=== PATIENT | male | born 1955 | race Caucasian/White ===

== ENCOUNTER 2021-09-13 02:03 | Inpatient (IN) | payer OTHER ==
[2021-09-13 03:42] LABS: BASO % 0.7 % (0-2.0); EOS % 2.5 % (0-4.5); HEMATOCRIT 33.3 % (35.4-49); HEMOGLOBIN 11.6 GM/dL (11.7-16.9); LYMPH % 19.5 % (8-40); MCHC 34.9 g/dl (32.0-35.9); MEAN CELL VOLUME 88.8 fl (80-96); MEAN PLT VOLUME 6.6 fl (7.5-11.1); MONO % 9.1 % (3.8-10.2); NEUT % 68.2 % (42.8-82.8); PLATELET COUNT 117 10^3/uL (134-434); RBC 3.75 M/mm3 (4.00-5.60); RDW 14.3 % (11.9-15.9); WHITE BLOOD COUNT 7.6 K/mm3 (4.0-10.0)
[2021-09-13 03:48] LABS: INR 1.03 (0.83-1.09); PROTHROMBIN TIME (PATIENT) 11.9 SEC (9.7-13.0)
[2021-09-13 03:50] LABS: ACTIVATED PTT 33.4 SECONDS (25.2-36.5)
[2021-09-13 04:01] LABS: CALCIUM 8.7 mg/dL (8.5-10.1)
[2021-09-13 04:02] LABS: ALBUMIN 3.6 g/dl (3.4-5.0); BLOOD UREA NITROGEN 29.9 mg/dL (7-18)
[2021-09-13 04:05] LABS: CREATININE 1.8 mg/dL (0.55-1.3)
[2021-09-13 04:06] LABS: BILIRUBIN,TOTAL 0.5 mg/dL (0.2-1)
[2021-09-13] MEDS ORDERED: DIPHTH,PERTUSS(ACELL),TET 0.5 ML DISP.SYRIN IM ONE ×3 (06:03→06:39)
[2021-09-13] MEDS ORDERED: BACITRACIN 0.9 GM PACKET ONE (06:04)
[2021-09-13] MEDS ORDERED: SODIUM CHLORIDE 0.9% 500 ML INFUS.BAG IV ONE (06:08)
[2021-09-13] MEDS ORDERED: LACTATED RINGERS SOLUTION 1000 ML INFUS.BAG IV ONE (08:58)
[2021-09-13] MEDS ORDERED: DIVALPROEX NA *ER* EXTEND REL 500 MG TABLET.SA (FP) PO SCH (10:00)
[2021-09-13] MEDS ORDERED: TAMSULOSIN HCL 0.4 MG CAP ONE (10:41)
[2021-09-13] MEDS ORDERED: ACETAMINOPHEN 325 MG TABLET (FP) ONE (10:41)
[2021-09-13] MEDS: SODIUM CHLORIDE 1,000 ML IV SCH (10:54)
[2021-09-13] MEDS: TAMSULOSIN HCL 0.4 MG CAP PO SCH (10:54)
[2021-09-13] MEDS: INSULIN (NOVOLOG) ASPART 100 UNITS/ML 10ML VIAL SQ SCH ×2 (10:54→17:07)
[2021-09-13] MEDS ORDERED: DIVALPROEX NA *ER* EXTEND REL 250 MG TABLET.SA PO SCH (10:55)
[2021-09-13] MEDS: ACETAMINOPHEN 325 MG TABLET (FP) PO PRN ×2 (11:00→20:17)
[2021-09-13 15:58] VITALS: BMI 23.6
[2021-09-13] MEDS: ATORVASTATIN CA 80 MG TABLET (FP) PO SCH (22:20)
[2021-09-14] MEDS: SODIUM CHLORIDE 1,000 ML IV SCH ×2 (03:53→17:32)
[2021-09-14] MEDS: ACETAMINOPHEN 325 MG TABLET (FP) PO PRN ×2 (05:08→21:33)
[2021-09-14] MEDS: INSULIN (NOVOLOG) ASPART 100 UNITS/ML 10ML VIAL SQ SCH ×3 (06:35→17:32)
[2021-09-14] MEDS: TAMSULOSIN HCL 0.4 MG CAP PO SCH (08:39)
[2021-09-14 10:49] LABS: CALCIUM 8.7 mg/dL (8.5-10.1)
[2021-09-14 10:50] LABS: BLOOD UREA NITROGEN 15.2 mg/dL (7-18)
[2021-09-14 10:53] LABS: CREATININE 1.1 mg/dL (0.55-1.3)
[2021-09-14] MEDS: PARoxetine HCL 10 MG TABLET PO SCH (18:33)
[2021-09-14] MEDS: amLODIPine BESYLATE 10 MG TABLET (FP) PO SCH (18:33)
[2021-09-14] MEDS: BUDESONIDE/FORMETEROL FUMARATE 80/4.5 mcg INHALER IH SCH (21:34)
[2021-09-14] MEDS: ATORVASTATIN CA 80 MG TABLET (FP) PO SCH (21:34)
[2021-09-14] MEDS: METOPROLOL TARTRATE 50 MG TABLET (FP) PO SCH (21:34)
[2021-09-14] MEDS: risperiDONE 0.5 MG TABLET PO SCH (21:34)
[2021-09-14] MEDS: clonazePAM 2 MG TABLET PO SCH (21:34)
[2021-09-15] MEDS: ACETAMINOPHEN 325 MG TABLET (FP) PO PRN (02:56)
[2021-09-15] MEDS: LEVOTHYROXINE NA 125 MCG TABLET (FP) PO SCH (06:21)
[2021-09-15] MEDS: INSULIN (NOVOLOG) ASPART 100 UNITS/ML 10ML VIAL SQ SCH ×3 (06:22→18:07)
[2021-09-15] MEDS: TAMSULOSIN HCL 0.4 MG CAP PO SCH (08:15)
[2021-09-15 09:07] LABS: BASO % 0.4 % (0-2.0); EOS % 2.5 % (0-4.5); HEMOGLOBIN 12.6 GM/dL (11.7-16.9); LYMPH % 21.8 % (8-40); MEAN CELL VOLUME 88.7 fl (80-96); MEAN PLT VOLUME 6.8 fl (7.5-11.1); MONO % 10.1 % (3.8-10.2); NEUT % 65.2 % (42.8-82.8); PLATELET COUNT 122 10^3/uL (134-434); RBC 4.06 M/mm3 (4.00-5.60); RDW 14.6 % (11.9-15.9); WHITE BLOOD COUNT 4.7 K/mm3 (4.0-10.0)
[2021-09-15 09:28] LABS: CALCIUM 8.9 mg/dL (8.5-10.1); MAGNESIUM 2.1 mg/dL (1.8-2.4)
[2021-09-15] MEDS: clonazePAM 2 MG TABLET PO SCH ×2 (09:30→22:20)
[2021-09-15] MEDS: METOPROLOL TARTRATE 50 MG TABLET (FP) PO SCH ×2 (09:30→22:20)
[2021-09-15 09:31] LABS: PHOSPHOROUS 2.8 mg/dL (2.5-4.9)
[2021-09-15] MEDS: SODIUM CHLORIDE 1,000 ML IV SCH ×2 (09:31→20:09)
[2021-09-15] MEDS: BUDESONIDE/FORMETEROL FUMARATE 80/4.5 mcg INHALER IH SCH ×2 (09:31→22:21)
[2021-09-15] MEDS: amLODIPine BESYLATE 10 MG TABLET (FP) PO SCH (09:31)
[2021-09-15] MEDS: PARoxetine HCL 10 MG TABLET PO SCH (09:31)
[2021-09-15] MEDS: oxyCODONE HCL 5 MG TABLET PO PRN (18:12)
[2021-09-15] MEDS: HEPARIN NA (PORCINE) 5,000 UNITS/ML 1ML VIAL SQ SCH (22:18)
[2021-09-15] MEDS: ATORVASTATIN CA 80 MG TABLET (FP) PO SCH (22:20)
[2021-09-15] MEDS: risperiDONE 0.5 MG TABLET PO SCH (22:20)
[2021-09-16] MEDS: HEPARIN NA (PORCINE) 5,000 UNITS/ML 1ML VIAL SQ SCH ×3 (06:21→21:51)
[2021-09-16] MEDS: INSULIN (NOVOLOG) ASPART 100 UNITS/ML 10ML VIAL SQ SCH ×3 (06:21→17:01)
[2021-09-16] MEDS: LEVOTHYROXINE NA 125 MCG TABLET (FP) PO SCH (06:22)
[2021-09-16] MEDS: TAMSULOSIN HCL 0.4 MG CAP PO SCH (08:27)
[2021-09-16] MEDS: SODIUM CHLORIDE 1,000 ML IV SCH (08:28)
[2021-09-16 09:15] LABS: BASO % 0.5 % (0-2.0); EOS % 2.8 % (0-4.5); HEMATOCRIT 33.9 % (35.4-49); HEMOGLOBIN 11.9 GM/dL (11.7-16.9); LYMPH % 21.6 % (8-40); MCH 30.9 pg (25.7-33.7); MCHC 35.1 g/dl (32.0-35.9); MEAN CELL VOLUME 88.2 fl (80-96); MEAN PLT VOLUME 6.7 fl (7.5-11.1); NEUT % 64.1 % (42.8-82.8); PLATELET COUNT 117 10^3/uL (134-434); RBC 3.85 M/mm3 (4.00-5.60); RDW 14.7 % (11.9-15.9); WHITE BLOOD COUNT 5.1 K/mm3 (4.0-10.0)
[2021-09-16 09:45] LABS: CALCIUM 8.8 mg/dL (8.5-10.1)
[2021-09-16 09:46] LABS: BLOOD UREA NITROGEN 8.5 mg/dL (7-18); MAGNESIUM 1.9 mg/dL (1.8-2.4)
[2021-09-16 09:49] LABS: CREATININE 1.1 mg/dL (0.55-1.3); PHOSPHOROUS 2.5 mg/dL (2.5-4.9)
[2021-09-16] MEDS: BUDESONIDE/FORMETEROL FUMARATE 80/4.5 mcg INHALER IH SCH ×2 (10:47→21:52)
[2021-09-16] MEDS: METOPROLOL TARTRATE 50 MG TABLET (FP) PO SCH ×2 (10:47→21:51)
[2021-09-16] MEDS: amLODIPine BESYLATE 10 MG TABLET (FP) PO SCH (10:47)
[2021-09-16] MEDS: PARoxetine HCL 10 MG TABLET PO SCH (10:47)
[2021-09-16] MEDS: clonazePAM 2 MG TABLET PO SCH ×2 (10:47→21:51)
[2021-09-16] MEDS: PATIENT'S OWN MEDICATION (NON-FORMULARY) (Cyclosporine [Restasis] 1 EACH Droperette) OU SCH ×2 (15:38→15:39)
[2021-09-16] MEDS: ATORVASTATIN CA 80 MG TABLET (FP) PO SCH (21:52)
[2021-09-16] MEDS: risperiDONE 0.5 MG TABLET PO SCH (21:52)
[2021-09-17] MEDS: SODIUM CHLORIDE 1,000 ML IV SCH ×2 (01:10→10:24)
[2021-09-17] MEDS: oxyCODONE HCL 5 MG TABLET PO PRN ×2 (01:39→20:44)
[2021-09-17] MEDS: ACETAMINOPHEN 325 MG TABLET (FP) PO PRN ×2 (04:13→20:45)
[2021-09-17] MEDS: INSULIN (NOVOLOG) ASPART 100 UNITS/ML 10ML VIAL SQ SCH ×3 (06:36→17:20)
[2021-09-17] MEDS: HEPARIN NA (PORCINE) 5,000 UNITS/ML 1ML VIAL SQ SCH ×2 (06:36→15:02)
[2021-09-17] MEDS: LEVOTHYROXINE NA 125 MCG TABLET (FP) PO SCH (06:36)
[2021-09-17 09:06] LABS: BASO % 0.6 % (0-2.0); HEMATOCRIT 32.1 % (35.4-49); HEMOGLOBIN 11.3 GM/dL (11.7-16.9); LYMPH % 24.2 % (8-40); MCHC 35.3 g/dl (32.0-35.9); MEAN CELL VOLUME 87.8 fl (80-96); MEAN PLT VOLUME 6.5 fl (7.5-11.1); MONO % 12.4 % (3.8-10.2); NEUT % 59.8 % (42.8-82.8); PLATELET COUNT 126 10^3/uL (134-434); RBC 3.65 M/mm3 (4.00-5.60); RDW 14.6 % (11.9-15.9); WHITE BLOOD COUNT 5.5 K/mm3 (4.0-10.0)
[2021-09-17 09:15] LABS: CALCIUM 8.2 mg/dL (8.5-10.1)
[2021-09-17 09:16] LABS: BLOOD UREA NITROGEN 8.3 mg/dL (7-18)
[2021-09-17 09:17] LABS: MAGNESIUM 1.8 mg/dL (1.8-2.4)
[2021-09-17 09:19] LABS: CREATININE 1.1 mg/dL (0.55-1.3); PHOSPHOROUS 2.4 mg/dL (2.5-4.9)
[2021-09-17] MEDS: clonazePAM 2 MG TABLET PO SCH ×2 (10:23→21:38)
[2021-09-17] MEDS: TAMSULOSIN HCL 0.4 MG CAP PO SCH (10:23)
[2021-09-17] MEDS: PARoxetine HCL 10 MG TABLET PO SCH (10:23)
[2021-09-17] MEDS: amLODIPine BESYLATE 10 MG TABLET (FP) PO SCH (10:23)
[2021-09-17] MEDS: METOPROLOL TARTRATE 50 MG TABLET (FP) PO SCH ×2 (10:23→21:42)
[2021-09-17] MEDS: BUDESONIDE/FORMETEROL FUMARATE 80/4.5 mcg INHALER IH SCH ×2 (10:26→21:43)
[2021-09-17] MEDS ORDERED: SODIUM CHLORIDE 0.9% 500 ML INFUS.BAG IV ONE (11:12)
[2021-09-17] MEDS ORDERED: POTASSIUM CHLORIDE TABS 20 MEQ TABLET.ER (FP) PO ONE (11:30)
[2021-09-17] MEDS ORDERED: POTASSIUM CHLORIDE ORAL LIQUID 20 MEQ/15 ML PO ONE (14:00)
[2021-09-17] MEDS ORDERED: FAMOTIDINE 20 MG TABLET PO ONE (21:00)
[2021-09-17] MEDS ORDERED: FAMOTIDINE 10 MG TABLET PO ONE (21:00)
[2021-09-17] MEDS: ATORVASTATIN CA 80 MG TABLET (FP) PO SCH (21:38)
[2021-09-17] MEDS: risperiDONE 0.5 MG TABLET PO SCH (21:38)
[2021-09-18] MEDS: LEVOTHYROXINE NA 125 MCG TABLET (FP) PO SCH (06:07)
[2021-09-18] MEDS: INSULIN (NOVOLOG) ASPART 100 UNITS/ML 10ML VIAL SQ SCH ×3 (06:08→17:26)
[2021-09-18] MEDS: clonazePAM 2 MG TABLET PO SCH ×2 (10:25→21:16)
[2021-09-18] MEDS: METOPROLOL TARTRATE 50 MG TABLET (FP) PO SCH ×2 (10:25→21:16)
[2021-09-18] MEDS: BUDESONIDE/FORMETEROL FUMARATE 80/4.5 mcg INHALER IH SCH ×2 (10:25→21:17)
[2021-09-18] MEDS: SODIUM CHLORIDE 1,000 ML IV SCH ×2 (10:25→17:19)
[2021-09-18] MEDS: TAMSULOSIN HCL 0.4 MG CAP PO SCH (10:25)
[2021-09-18] MEDS: PARoxetine HCL 10 MG TABLET PO SCH (10:25)
[2021-09-18] MEDS: amLODIPine BESYLATE 10 MG TABLET (FP) PO SCH (10:25)
[2021-09-18] MEDS: oxyCODONE HCL 5 MG TABLET PO PRN (13:19)
[2021-09-18] MEDS: ACETAMINOPHEN 325 MG TABLET (FP) PO PRN ×2 (13:21→20:22)
[2021-09-18] MEDS: risperiDONE 0.5 MG TABLET PO SCH (21:16)
[2021-09-18] MEDS: ATORVASTATIN CA 80 MG TABLET (FP) PO SCH (21:16)
[2021-09-19] MEDS: oxyCODONE HCL 5 MG TABLET PO PRN ×2 (02:32→21:40)
[2021-09-19] MEDS: LEVOTHYROXINE NA 125 MCG TABLET (FP) PO SCH (06:04)
[2021-09-19] MEDS: INSULIN (NOVOLOG) ASPART 100 UNITS/ML 10ML VIAL SQ SCH ×2 (06:05→12:02)
[2021-09-19] MEDS: TAMSULOSIN HCL 0.4 MG CAP PO SCH (08:21)
[2021-09-19] MEDS: PARoxetine HCL 10 MG TABLET PO SCH (09:40)
[2021-09-19] MEDS: amLODIPine BESYLATE 10 MG TABLET (FP) PO SCH (09:40)
[2021-09-19] MEDS: METOPROLOL TARTRATE 50 MG TABLET (FP) PO SCH ×2 (09:40→21:34)
[2021-09-19] MEDS: SODIUM CHLORIDE 1,000 ML IV SCH ×2 (09:40→20:46)
[2021-09-19] MEDS: clonazePAM 2 MG TABLET PO SCH ×2 (09:40→21:34)
[2021-09-19] MEDS: BUDESONIDE/FORMETEROL FUMARATE 80/4.5 mcg INHALER IH SCH ×2 (09:41→21:37)
[2021-09-19] MEDS: ACETAMINOPHEN 325 MG TABLET (FP) PO PRN (17:50)
[2021-09-19] MEDS: risperiDONE 0.5 MG TABLET PO SCH (21:34)
[2021-09-19] MEDS: ATORVASTATIN CA 80 MG TABLET (FP) PO SCH (21:35)
[2021-09-20] MEDS: LEVOTHYROXINE NA 125 MCG TABLET (FP) PO SCH (06:08)
[2021-09-20] MEDS: ACETAMINOPHEN 325 MG TABLET (FP) PO PRN ×2 (06:08→22:23)
[2021-09-20] MEDS: oxyCODONE HCL 5 MG TABLET PO PRN (06:10)
[2021-09-20] MEDS: TAMSULOSIN HCL 0.4 MG CAP PO SCH (08:30)
[2021-09-20 08:43] LABS: INR 1.1 (0.83-1.09); PROTHROMBIN TIME (PATIENT) 12.7 SEC (9.7-13.0)
[2021-09-20 08:46] LABS: ACTIVATED PTT 28.8 SECONDS (25.2-36.5)
[2021-09-20] MEDS: SODIUM CHLORIDE 1,000 ML IV SCH ×2 (09:23→18:15)
[2021-09-20] MEDS: BUDESONIDE/FORMETEROL FUMARATE 80/4.5 mcg INHALER IH SCH ×2 (09:27→22:24)
[2021-09-20] MEDS: amLODIPine BESYLATE 10 MG TABLET (FP) PO SCH (09:27)
[2021-09-20] MEDS: PARoxetine HCL 10 MG TABLET PO SCH (09:27)
[2021-09-20] MEDS: clonazePAM 2 MG TABLET PO SCH ×2 (09:27→22:23)
[2021-09-20] MEDS: METOPROLOL TARTRATE 50 MG TABLET (FP) PO SCH ×2 (09:27→22:24)
[2021-09-20] MEDS ORDERED: ONDANSETRON 4 MG/2 ML VIAL IVPUSH ONE (19:50)
[2021-09-20] MEDS: ATORVASTATIN CA 80 MG TABLET (FP) PO SCH (22:23)
[2021-09-20] MEDS: risperiDONE 0.5 MG TABLET PO SCH (22:23)
[2021-09-21] MEDS: LEVOTHYROXINE NA 125 MCG TABLET (FP) PO SCH (07:30)
[2021-09-21] MEDS: PARoxetine HCL 10 MG TABLET PO SCH (10:44)
[2021-09-21] MEDS: TAMSULOSIN HCL 0.4 MG CAP PO SCH (10:44)
[2021-09-21] MEDS: METOPROLOL TARTRATE 50 MG TABLET (FP) PO SCH ×2 (10:44→23:20)
[2021-09-21] MEDS: clonazePAM 2 MG TABLET PO SCH ×2 (10:45→23:20)
[2021-09-21] MEDS: amLODIPine BESYLATE 10 MG TABLET (FP) PO SCH (10:45)
[2021-09-21] MEDS: BUDESONIDE/FORMETEROL FUMARATE 80/4.5 mcg INHALER IH SCH ×2 (10:46→23:22)
[2021-09-21] MEDS: SODIUM CHLORIDE 1,000 ML IV SCH (10:48)
[2021-09-21 11:26] LABS: BASO % 0.5 % (0-2.0); EOS % 2.7 % (0-4.5); HEMATOCRIT 31.5 % (35.4-49); HEMOGLOBIN 11.3 GM/dL (11.7-16.9); LYMPH % 24.5 % (8-40); MCH 31.6 pg (25.7-33.7); MCHC 35.7 g/dl (32.0-35.9); MEAN CELL VOLUME 88.4 fl (80-96); MEAN PLT VOLUME 6.5 fl (7.5-11.1); MONO % 7.2 % (3.8-10.2); NEUT % 65.1 % (42.8-82.8); PLATELET COUNT 181 10^3/uL (134-434); RBC 3.56 M/mm3 (4.00-5.60); RDW 14.6 % (11.9-15.9); WHITE BLOOD COUNT 6.1 K/mm3 (4.0-10.0)
[2021-09-21] MEDS ORDERED: THROMBIN (BOVINE) 20,000 UNIT VIAL TP ONE (11:38)
[2021-09-21] MEDS ORDERED: ceFAZolin SODIUM 1 GM VIAL ONE ×3 (11:38→22:06)
[2021-09-21] MEDS ORDERED: ceFAZolin SODIUM 1 GM VIAL IVPB ONE ×4 (11:46→13:30)
[2021-09-21 11:50] LABS: BLOOD UREA NITROGEN 10.5 mg/dL (7-18); CALCIUM 8.6 mg/dL (8.5-10.1)
[2021-09-21 11:52] LABS: ALBUMIN 3.3 g/dl (3.4-5.0); CREATININE 1.1 mg/dL (0.55-1.3)
[2021-09-21 11:54] LABS: BILIRUBIN,TOTAL 0.5 mg/dL (0.2-1); TOT PROT 6.1 g/dl (6.4-8.2)
[2021-09-21] MEDS ORDERED: PROPOFOL 20 ML ONE ×6 (12:18→14:24)
[2021-09-21] MEDS ORDERED: MIDAZOLAM HCL 2 MG/2 ML SINGLE DOSE VIAL ONE ×2 (12:18)
[2021-09-21] MEDS ORDERED: SUCCINYLCHOLINE CHLORIDE 200 MG/10 ML SYRINGE ONE (12:18)
[2021-09-21] MEDS ORDERED: THROMBIN (BOVINE) 5,000 UNIT VIAL TP ONE ×2 (13:04→13:30)
[2021-09-21] MEDS ORDERED: ONDANSETRON 4 MG/2 ML VIAL ONE ×2 (13:18→15:25)
[2021-09-21] MEDS ORDERED: DEXAMETHASONE SOD PHOSPHATE 4 MG/1 ML VIAL ONE (13:18)
[2021-09-21] MEDS ORDERED: HYDROmorphone HCl 2 MG/ML VIAL IVPUSH PRN (16:09)
[2021-09-21] MEDS ORDERED: ONDANSETRON 4 MG/2 ML VIAL IVPUSH PRN ×2 (16:09→16:17)
[2021-09-21] MEDS ORDERED: LACTATED RINGERS SOLUTION 1,000 ML IV SCH (16:15)
[2021-09-21] MEDS ORDERED: CYCLOBENZAPRINE HCL 5 MG TABLET PO PRN (16:18)
[2021-09-21] MEDS ORDERED: ACETAMINOPHEN 1000 MG/100 ML BAG IVPB SCH (16:30)
[2021-09-21] MEDS ORDERED: SODIUM CHLORIDE 1,000 ML IV SCH (17:42)
[2021-09-21] MEDS ORDERED: HYDROmorphone *PCA* 10MG/50ML DISP.SYRIN ONE (18:00)
[2021-09-21] MEDS: HYDROmorphone *PCA* 10MG/50ML DISP.SYRIN PCA SCH (18:05)
[2021-09-21] MEDS ORDERED: DEXTROSE 5%-WATER - 50 ML IVPB ONE (22:07)
[2021-09-21] MEDS: CEFAZOLIN 1 GM in DEXTROSE 5%-WATER - 50 ML IVPB SCH (23:19)
[2021-09-21] MEDS: ATORVASTATIN CA 80 MG TABLET (FP) PO SCH (23:20)
[2021-09-21] MEDS: ACETAMINOPHEN 1000 MG/100 ML BAG IVPB SCH (23:21)
[2021-09-21] MEDS: risperiDONE 0.5 MG TABLET PO SCH (23:21)
[2021-09-22] MEDS ORDERED: ceFAZolin SODIUM 1 GM VIAL ONE ×2 (05:24→14:02)
[2021-09-22] MEDS ORDERED: DEXTROSE 5%-WATER - 50 ML IVPB ONE ×2 (05:24→14:03)
[2021-09-22] MEDS: ACETAMINOPHEN 1000 MG/100 ML BAG IVPB SCH ×2 (05:46→10:11)
[2021-09-22] MEDS: CEFAZOLIN 1 GM in DEXTROSE 5%-WATER - 50 ML IVPB SCH ×2 (06:25→14:15)
[2021-09-22] MEDS: LEVOTHYROXINE NA 125 MCG TABLET (FP) PO SCH (06:49)
[2021-09-22] MEDS: TAMSULOSIN HCL 0.4 MG CAP PO SCH (08:39)
[2021-09-22 08:55] LABS: BASO % 0.2 % (0-2.0); HEMATOCRIT 32.1 % (35.4-49); LYMPH % 9.5 % (8-40); MCH 30.5 pg (25.7-33.7); MCHC 34.2 g/dl (32.0-35.9); MEAN CELL VOLUME 89.3 fl (80-96); MEAN PLT VOLUME 6.4 fl (7.5-11.1); MONO % 6.3 % (3.8-10.2); PLATELET COUNT 190 10^3/uL (134-434); RBC 3.59 M/mm3 (4.00-5.60); RDW 15.2 % (11.9-15.9); WHITE BLOOD COUNT 13.3 K/mm3 (4.0-10.0)
[2021-09-22 09:25] LABS: CALCIUM 8.2 mg/dL (8.5-10.1)
[2021-09-22 09:26] LABS: BLOOD UREA NITROGEN 17.4 mg/dL (7-18); MAGNESIUM 1.6 mg/dL (1.8-2.4)
[2021-09-22 09:30] LABS: CREATININE 1.2 mg/dL (0.55-1.3); PHOSPHOROUS 5.1 mg/dL (2.5-4.9)
[2021-09-22] MEDS: clonazePAM 2 MG TABLET PO SCH ×2 (10:10→21:41)
[2021-09-22] MEDS: PARoxetine HCL 10 MG TABLET PO SCH (10:11)
[2021-09-22] MEDS: amLODIPine BESYLATE 10 MG TABLET (FP) PO SCH (10:11)
[2021-09-22] MEDS: BUDESONIDE/FORMETEROL FUMARATE 80/4.5 mcg INHALER IH SCH ×2 (10:13→21:49)
[2021-09-22] MEDS: METOPROLOL TARTRATE 50 MG TABLET (FP) PO SCH ×2 (10:17→21:41)
[2021-09-22] MEDS ORDERED: MAGNESIUM SULF 50% (8.12 MEQ/2 ML-1 GM VIAL) IVPB ONE (11:57)
[2021-09-22] MEDS: SODIUM CHLORIDE 1,000 ML IV SCH (12:59)
[2021-09-22 17:09] LABS: FREE KAPPA,SERUM 25.3 mg/L (3.3-19.4)
[2021-09-22] MEDS: HEPARIN NA (PORCINE) 5,000 UNITS/ML 1ML VIAL SQ SCH (21:40)
[2021-09-22] MEDS: ATORVASTATIN CA 80 MG TABLET (FP) PO SCH (21:40)
[2021-09-22] MEDS: risperiDONE 0.5 MG TABLET PO SCH (21:40)
[2021-09-22] MEDS: ACETAMINOPHEN 500 MG TABLET (FP) PO PRN (23:25)
[2021-09-23] MEDS: LEVOTHYROXINE NA 125 MCG TABLET (FP) PO SCH (06:18)
[2021-09-23 09:19] LABS: BASO % 0.4 % (0-2.0); EOS % 1.9 % (0-4.5); HEMATOCRIT 33.6 % (35.4-49); HEMOGLOBIN 11.6 GM/dL (11.7-16.9); LYMPH % 19.8 % (8-40); MCH 31.2 pg (25.7-33.7); MCHC 34.5 g/dl (32.0-35.9); MEAN CELL VOLUME 90.2 fl (80-96); MEAN PLT VOLUME 6.4 fl (7.5-11.1); MONO % 10.6 % (3.8-10.2); NEUT % 67.3 % (42.8-82.8); PLATELET COUNT 167 10^3/uL (134-434); RBC 3.73 M/mm3 (4.00-5.60); RDW 15.7 % (11.9-15.9); WHITE BLOOD COUNT 9.1 K/mm3 (4.0-10.0)
[2021-09-23] MEDS: HYDROmorphone *PCA* 10MG/50ML DISP.SYRIN PCA SCH ×2 (09:19→18:04)
[2021-09-23] MEDS: clonazePAM 2 MG TABLET PO SCH ×2 (09:31→22:01)
[2021-09-23] MEDS: TAMSULOSIN HCL 0.4 MG CAP PO SCH (09:31)
[2021-09-23] MEDS: amLODIPine BESYLATE 10 MG TABLET (FP) PO SCH (09:32)
[2021-09-23] MEDS: METOPROLOL TARTRATE 50 MG TABLET (FP) PO SCH ×2 (09:32→22:01)
[2021-09-23] MEDS: PARoxetine HCL 10 MG TABLET PO SCH (09:32)
[2021-09-23] MEDS: BUDESONIDE/FORMETEROL FUMARATE 80/4.5 mcg INHALER IH SCH ×2 (09:34→22:01)
[2021-09-23 10:21] LABS: BLOOD UREA NITROGEN 17.6 mg/dL (7-18)
[2021-09-23 10:22] LABS: CALCIUM 8.3 mg/dL (8.5-10.1)
[2021-09-23 10:23] LABS: CREATININE 1.2 mg/dL (0.55-1.3); MAGNESIUM 2.3 mg/dL (1.8-2.4)
[2021-09-23] MEDS: HEPARIN NA (PORCINE) 5,000 UNITS/ML 1ML VIAL SQ SCH ×2 (10:30→22:01)
[2021-09-23] MEDS: ACETAMINOPHEN 500 MG TABLET (FP) PO PRN (11:23)
[2021-09-23] MEDS: SODIUM CHLORIDE 1,000 ML IV SCH (12:51)
[2021-09-23] MEDS: risperiDONE 0.5 MG TABLET PO SCH (22:01)
[2021-09-23] MEDS: ATORVASTATIN CA 80 MG TABLET (FP) PO SCH (22:01)
[2021-09-24] MEDS: ACETAMINOPHEN 500 MG TABLET (FP) PO PRN (00:12)
[2021-09-24] MEDS: LEVOTHYROXINE NA 125 MCG TABLET (FP) PO SCH (06:22)
[2021-09-24] MEDS ORDERED: oxyCODONE HCL 5 MG TABLET PO PRN ×2 (08:37→08:41)
[2021-09-24] MEDS ORDERED: ACETAMINOPHEN 500 MG TABLET (FP) PO PRN (08:41)
[2021-09-24 09:21] LABS: BASO % 0.6 % (0-2.0); EOS % 2.4 % (0-4.5); HEMATOCRIT 34.9 % (35.4-49); LYMPH % 22.5 % (8-40); MCH 31.4 pg (25.7-33.7); MCHC 34.5 g/dl (32.0-35.9); MEAN CELL VOLUME 91.1 fl (80-96); MEAN PLT VOLUME 6.5 fl (7.5-11.1); MONO % 7.1 % (3.8-10.2); NEUT % 67.4 % (42.8-82.8); PLATELET COUNT 201 10^3/uL (134-434); RBC 3.83 M/mm3 (4.00-5.60); RDW 15.4 % (11.9-15.9); WHITE BLOOD COUNT 10.6 K/mm3 (4.0-10.0)
[2021-09-24 10:19] LABS: BLOOD UREA NITROGEN 15.5 mg/dL (7-18); CALCIUM 8.6 mg/dL (8.5-10.1)
[2021-09-24 10:20] LABS: CREATININE 1.1 mg/dL (0.55-1.3); MAGNESIUM 2.2 mg/dL (1.8-2.4); PHOSPHOROUS 3.3 mg/dL (2.5-4.9)
[2021-09-24] MEDS: TAMSULOSIN HCL 0.4 MG CAP PO SCH (11:31)
[2021-09-24] MEDS: clonazePAM 2 MG TABLET PO SCH ×2 (11:31→21:58)
[2021-09-24] MEDS: amLODIPine BESYLATE 10 MG TABLET (FP) PO SCH (11:31)
[2021-09-24] MEDS: PARoxetine HCL 10 MG TABLET PO SCH (11:31)
[2021-09-24] MEDS: HEPARIN NA (PORCINE) 5,000 UNITS/ML 1ML VIAL SQ SCH ×2 (11:32→21:58)
[2021-09-24] MEDS: METOPROLOL TARTRATE 50 MG TABLET (FP) PO SCH ×2 (11:32→21:58)
[2021-09-24] MEDS: BUDESONIDE/FORMETEROL FUMARATE 80/4.5 mcg INHALER IH SCH ×2 (11:37→21:59)
[2021-09-24] MEDS: oxyCODONE HCL 5 MG TABLET PO PRN ×2 (13:47→20:10)
[2021-09-24] MEDS: ATORVASTATIN CA 80 MG TABLET (FP) PO SCH (21:58)
[2021-09-24] MEDS: risperiDONE 0.5 MG TABLET PO SCH (21:58)
[2021-09-25] MEDS: LEVOTHYROXINE NA 125 MCG TABLET (FP) PO SCH (06:01)
[2021-09-25] MEDS: TAMSULOSIN HCL 0.4 MG CAP PO SCH (09:46)
[2021-09-25] MEDS: PARoxetine HCL 10 MG TABLET PO SCH (09:46)
[2021-09-25] MEDS: METOPROLOL TARTRATE 50 MG TABLET (FP) PO SCH (09:46)
[2021-09-25] MEDS: HEPARIN NA (PORCINE) 5,000 UNITS/ML 1ML VIAL SQ SCH (09:46)
[2021-09-25] MEDS: clonazePAM 2 MG TABLET PO SCH (09:46)
[2021-09-25] MEDS: amLODIPine BESYLATE 10 MG TABLET (FP) PO SCH (09:46)
[2021-09-25] MEDS: SODIUM CHLORIDE 1,000 ML IV SCH (09:47)
[2021-09-25] MEDS: BUDESONIDE/FORMETEROL FUMARATE 80/4.5 mcg INHALER IH SCH (09:52)
[2021-09-25 17:44] VITALS: BP 126/74; PULSE 92; TEMP 99.2
== END 2021-09-25 06:17 | DRG 472 ==
LOC: JER 02:03 → JERBED 06:55 → J8W 15:43
PROVIDERS: ADMIT Internal Medicine
PROC: 00NW0ZZ Release Cervical Spinal Cord, Open Approach (ICD-10-PCS; 2021-09-21)
PROC: 4A10X4G Monitoring of Central Nervous Electrical Activity, Intraoperative, External Approach (ICD-10-PCS; 2021-09-21)
PROC: 0RG2071 Fusion of 2 or more Cervical Vertebral Joints with Autologous Tissue Substitute, Posterior Approach, Posterior Column, Open Approach (ICD-10-PCS; principal; 2021-09-21 11:00)
DX: M47.12 Other spondylosis with myelopathy, cervical region (principal); G95.20 Unspecified cord compression; M48.02 Spinal stenosis, cervical region; M54.16 Radiculopathy, lumbar region; R26.81 Unsteadiness on feet; I10 Essential (primary) hypertension; E78.5 Hyperlipidemia, unspecified; F41.8 Other specified anxiety disorders; F39 Unspecified mood [affective] disorder; I25.10 Atherosclerotic heart disease of native coronary artery without angina pectoris; G40.909 Epilepsy, unspecified, not intractable, without status epilepticus; R13.14 Dysphagia, pharyngoesophageal phase; E03.9 Hypothyroidism, unspecified; E11.42 Type 2 diabetes mellitus with diabetic polyneuropathy; G31.84 Mild cognitive impairment of uncertain or unknown etiology; S19.9XXA Unspecified injury of neck, initial encounter; W18.39XA Other fall on same level, initial encounter; Z87.820 Personal history of traumatic brain injury; Z95.5 Presence of coronary angioplasty implant and graft; Z85.46 Personal history of malignant neoplasm of prostate; Z85.22 Personal history of malignant neoplasm of nasal cavities, middle ear, and accessory sinuses; Y92.098 Other place in other non-institutional residence as the place of occurrence of the external cause
CPT/HCPCS: 36415; 70450-TC; 70486-TC; 70491-TC; 70551-TC; 71045-TC-FY; 71250-TC; 72040-TC; 72050-TC-FY; 72100-TC-FY; 72125-TC; 72131-TC; 72141-TC; 72148-TC; 74018-TC-FY; 74176-TC; 74230-TC-FY; 76000-TC-FY; 80048; 80053; 80164; 80307; 82784; 82962; 83036; 83735; 83883; 84100; 84155; 84165; 85025; 85384; 85610; 85730; 86850; 86900; 86901; 90715; 92611-GN; 93005; 93010; 93306-TC; 94760; 97116-GP; 97161-GP; 99285-25; C9803-CS; J1644; U0003; U0005